=== PATIENT | female | born 1980 | race Caucasian/White ===

== ENCOUNTER 2017-02-03 00:50 | Emergency (ER) | payer BC, OTHER ==
[~2017-02-03] VITALS: Ht 160 cm; Wt 80.7 kg
--- NOTE | 2017-02-03 01:29 | NUR ---
Patient discharged to home in stable conditon. Written and verbal after care instructions given. Patient verbalizes understanding of instructions. PATIENT LEFT WITH STABLE GAIT.
[2017-02-03 01:30] VITALS: BP 135/89
== END 2017-02-03 01:30 | disposition home or self-care (01) ==
LOC: ER 00:55
DX: H66.92 Otitis media, unspecified, left ear (principal)
CPT/HCPCS: A4663

== ENCOUNTER 2017-02-18 11:17 | Emergency (ER) | payer BC, OTHER ==
[~2017-02-18] VITALS: Ht 160 cm; Wt 79.4 kg
--- NOTE | 2017-02-18 11:38 | NUR ---
Patient discharged to home in stable conditon. Written and verbal after care instructions given to patient. Patient verbalizes understanding of instructions.
== END 2017-02-18 11:39 | disposition home or self-care (01) ==
LOC: ER 11:17
DX: J02.9 Acute pharyngitis, unspecified (principal)
CPT/HCPCS: 36415; 86403; 87070; A4663; Q0144

== ENCOUNTER 2017-07-22 07:05 | Emergency (ER) | payer BC, OTHER ==
[~2017-07-22] VITALS: Ht 160 cm; Wt 80.7 kg
== END 2017-07-22 07:59 | disposition home or self-care (01) ==
LOC: ER 07:05
DX: J20.8 Acute bronchitis due to other specified organisms (principal); B96.89 Other specified bacterial agents as the cause of diseases classified elsewhere; J45.909 Unspecified asthma, uncomplicated; Z90.49 Acquired absence of other specified parts of digestive tract
CPT/HCPCS: A4663

== ENCOUNTER 2017-10-25 10:59 | Day surgery (SDC) | payer BC, OTHER ==
[2017-10-25] MEDS ORDERED: LIDOCAINE HCL 1% 20 ML VIAL MC ONE (11:00)
[2017-10-25] MEDS ORDERED: PROPOFOL 200 MG/20 ML BOTTLE IV ONE (11:00)
[2017-10-25 11:27] LABS: BASOPHILS # (AUTO) 0.1 K/uL (0.0-8.0); BASOPHILS % (AUTO) 0.9 % (0.0-2.0); EOSINOPHILS # (AUTO) 0.3 K/uL (0.0-0.7); EOSINOPHILS % (AUTO) 3.7 % (0.0-7.0); HEMATOCRIT 39.3 % (31.2-41.9); HEMOGLOBIN 13.3 g/dL (10.9-14.3); LYMPHOCYTES # (AUTO) 2.8 K/uL (20.0-40.0); LYMPHOCYTES % (AUTO) 36.9 % (20.5-51.5); MEAN CORPUSCULAR HEMOGLOBIN 29.3 uug (24.7-32.8); MEAN CORPUSCULAR HGB CONC 34 g/dL (32.3-35.6); MEAN CORPUSCULAR VOLUME 86.3 fL (75.5-95.3); MONOCYTES # (AUTO) 0.4 K/uL (2.0-10.0); MONOCYTES % (AUTO) 4.8 % (0.0-11.0); NEUTROPHILS % (AUTO) 53.7 % (38.5-71.5); PLATELET COUNT (AUTO) 264 K/uL (179-408); RED BLOOD CELL COUNT(AUTO) 4.55 MIL/uL (3.63-4.92); WHITE BLOOD COUNT (AUTO) 7.5 K/uL (3.8-11.8)
[2017-10-25 11:31] LABS: *BILIRUBIN,URIN NEGATIVE (NEGATIVE); *BLOOD, URINE 2+ (NEGATIVE); *CLARITY,URINE SLIGHTLY CLOUDY (CLEAR); *COLOR,URINE YELLOW (YELLOW); *KETONES,URINE NEGATIVE (NEGATIVE); *PROTEIN,URINE NEGATIVE (NEGATIVE); *UROBILINOGEN,URINE 0.2 E.U./dl (NORMAL); LEUKOCYTE ESTERASE ,URINE 1+ (NEGATIVE); NITRITE, URINE NEGATIVE (NEGATIVE); PH,URINE 5.5 (5.0-8.0); UGLUCOSE NEGATIVE (NEGATIVE)
[2017-10-25 11:41] LABS: BILIRUBIN,TOTAL 0.4 mg/dL (0.2-1.0); CREATININE 0.7 mg/dL (0.6-1.3); POTASSIUM 3.8 mmol/L (3.5-5.1); TOTAL PROTEIN, SERUM 7.6 g/dL (6.4-8.2)
[2017-10-25 11:53] LABS: *URINE HCG, QUAL NEGATIVE (NEGATIVE)
[2017-10-25 11:56] LABS: BACTERIA,URINE MANY /HPF (NONE SEEN); SQUAMOUS EPITHELIAL CELL,UR MANY /HPF (NONE SEEN)
[2017-10-25] MEDS ORDERED: IOHEXOL 300MG/ML 50 ML VIAL ONE (13:16)
[2017-10-25] MEDS ORDERED: SUCCINYLCHOLINE CHLORIDE 200 MG/10 ML VIAL ONE (13:21)
[2017-10-25] MEDS ORDERED: INDOMETHACIN 50 MG SUPP.RECT RC ONE (13:33)
[2017-10-25] MEDS ORDERED: ALBUTEROL SULFATE 2.5 MG/3 ML NEBU ONE (15:14)
== END 2017-10-25 14:53 | disposition home or self-care (01) ==
LOC: DS 10:59
PROVIDERS: ATTEND Internal Medicine Gastroenterology
DX: R10.816 Epigastric abdominal tenderness (principal); E66.9 Obesity, unspecified; Z90.49 Acquired absence of other specified parts of digestive tract; Z79.899 Other long term (current) drug therapy; Z68.32 Body mass index [BMI] 32.0-32.9, adult
CPT/HCPCS: 36415; 43264; 74018; 76000; 84703; 85025; 85730; 94664; A4663; J0330; J3490; J7120; Q9967

== ENCOUNTER 2017-10-27 11:06 | Emergency (ER) | payer BC, OTHER ==
[~2017-10-27] VITALS: Ht 160 cm; Wt 79.4 kg
[2017-10-27] MEDS ORDERED: IBUPROFEN (11:32)
[2017-10-27] MEDS ORDERED: KETOROLAC TROMETHAMINE 60 MG INJ IM ONE ×2 (12:00)
[2017-10-27 12:13] LABS: BASOPHILS # (AUTO) 0.1 K/uL (0.0-8.0); BASOPHILS % (AUTO) 0.7 % (0.0-2.0); EOSINOPHILS # (AUTO) 0.3 K/uL (0.0-0.7); EOSINOPHILS % (AUTO) 3.1 % (0.0-7.0); HEMATOCRIT 36.7 % (31.2-41.9); HEMOGLOBIN 12.4 g/dL (10.9-14.3); LYMPHOCYTES # (AUTO) 2.4 K/uL (20.0-40.0); MEAN CORPUSCULAR HEMOGLOBIN 29.4 uug (24.7-32.8); MEAN CORPUSCULAR HGB CONC 34 g/dL (32.3-35.6); MEAN CORPUSCULAR VOLUME 87.2 fL (75.5-95.3); MONOCYTES # (AUTO) 0.8 K/uL (2.0-10.0); MONOCYTES % (AUTO) 7.1 % (0.0-11.0); NEUTROPHILS # (AUTO) 7.2 K/uL (1.8-8.9); NEUTROPHILS % (AUTO) 67.1 % (38.5-71.5); PLATELET COUNT (AUTO) 266 K/uL (179-408); WHITE BLOOD COUNT (AUTO) 10.8 K/uL (3.8-11.8)
[2017-10-27 12:17] LABS: CREATININE 0.6 mg/dL (0.6-1.3); POTASSIUM 3.6 mmol/L (3.5-5.1)
[2017-10-27 12:23] LABS: BILIRUBIN,TOTAL 0.5 mg/dL (0.2-1.0); TOTAL PROTEIN, SERUM 7.6 g/dL (6.4-8.2)
[2017-10-27 12:26] LABS: *BILIRUBIN,URIN NEGATIVE (NEGATIVE); *BLOOD, URINE 3+ (NEGATIVE); *CLARITY,URINE CLOUDY (CLEAR); *COLOR,URINE YELLOW (YELLOW); *KETONES,URINE 1+ (NEGATIVE); *PROTEIN,URINE 1+ (NEGATIVE); LEUKOCYTE ESTERASE ,URINE NEGATIVE (NEGATIVE); NITRITE, URINE NEGATIVE (NEGATIVE); PH,URINE 6.5 (5.0-8.0); UGLUCOSE NEGATIVE (NEGATIVE)
[2017-10-27 12:28] LABS: *URINE HCG, QUAL NEGATIVE (NEGATIVE)
[2017-10-27 12:30] LABS: BACTERIA,URINE FEW /HPF (NONE SEEN); RBC,URINE TNTC /HPF (0-3); SQUAMOUS EPITHELIAL CELL,UR FEW /HPF (NONE SEEN)
--- NOTE | 2017-10-27 15:04 | NUR ---
mse completed, pt d/c'd home, aci/rx x2 given. pt got dressed and ambultaed w/o diff/took all belongings.
[2017-10-27 15:05] VITALS: BP 133/74
== END 2017-10-27 15:05 | disposition home or self-care (01) ==
LOC: ER 11:10
DX: N39.0 Urinary tract infection, site not specified (principal); M79.1 Myalgia; K21.9 Gastro-esophageal reflux disease without esophagitis; Z79.1 Long term (current) use of non-steroidal anti-inflammatories (NSAID); Z90.49 Acquired absence of other specified parts of digestive tract
CPT/HCPCS: 36415; 80053; 81001; 84703; 85025; 96372; 99284; A4663; J1885

== ENCOUNTER 2018-02-02 13:10 | Emergency (ER) | payer BC, OTHER ==
[~2018-02-02] VITALS: Ht 160 cm; Wt 81.6 kg
[~2018-02-02 13:10] MED LIST: IBUPROFEN
[2018-02-02] MEDS ORDERED: ONDANSETRON ODT 4 MG TAB.RAPDIS SL ONE (13:30)
[2018-02-02] MEDS ORDERED: ONDANSETRON ODT 4 MG TAB.RAPDIS ONE (13:35)
[2018-02-02 13:55] LABS: BASOPHILS % (AUTO) 0.3 % (0.0-2.0); EOSINOPHILS # (AUTO) 0.1 K/uL (0.0-0.7); EOSINOPHILS % (AUTO) 0.6 % (0.0-7.0); HEMATOCRIT 41.1 % (31.2-41.9); HEMOGLOBIN 13.6 g/dL (10.9-14.3); LYMPHOCYTES # (AUTO) 1.6 K/uL (20.0-40.0); MEAN CORPUSCULAR HEMOGLOBIN 28.9 uug (24.7-32.8); MEAN CORPUSCULAR HGB CONC 33 g/dL (32.3-35.6); MEAN CORPUSCULAR VOLUME 87.1 fL (75.5-95.3); MONOCYTES % (AUTO) 6.8 % (0.0-11.0); NEUTROPHILS # (AUTO) 11.8 K/uL (1.8-8.9); NEUTROPHILS % (AUTO) 81.3 % (38.5-71.5); PLATELET COUNT (AUTO) 300 K/uL (179-408); RED BLOOD CELL COUNT(AUTO) 4.72 MIL/uL (3.63-4.92); WHITE BLOOD COUNT (AUTO) 14.5 K/uL (3.8-11.8)
[2018-02-02 14:01] LABS: CREATININE 0.6 mg/dL (0.6-1.3); POTASSIUM 3.6 mmol/L (3.5-5.1)
[2018-02-02 14:07] LABS: BILIRUBIN,DIRECT 0.1 mg/dL (0.0-0.2); BILIRUBIN,TOTAL 0.4 mg/dL (0.2-1.0)
--- NOTE | 2018-02-02 14:36 | NUR ---
Patient discharged to home in stable conditon. Written and verbal after care instructions given. Patient verbalizes understanding of instructions.
== END 2018-02-02 14:37 | disposition home or self-care (01) ==
LOC: ER 13:13
DX: R42 Dizziness and giddiness (principal); K21.9 Gastro-esophageal reflux disease without esophagitis; Z90.49 Acquired absence of other specified parts of digestive tract
CPT/HCPCS: 36415; 80048; 80076; 83690; 84484; 85025; 93005; 99285; A4663; Q0162; 70030-TC

== ENCOUNTER 2018-07-27 17:16 | Emergency (ER) | payer BC, OTHER ==
[~2018-07-27] VITALS: Ht 160 cm; Wt 81.6 kg
--- NOTE | 2018-07-27 17:30 | NUR ---
Patient discharged to home in stable conditon. Written and verbal after care instructions given. Patient verbalizes understanding of instructions.
== END 2018-07-27 17:33 | disposition home or self-care (01) ==
LOC: ER 17:18
DX: H60.91 Unspecified otitis externa, right ear (principal); K21.9 Gastro-esophageal reflux disease without esophagitis; Z90.49 Acquired absence of other specified parts of digestive tract
CPT/HCPCS: A4663

== ENCOUNTER 2018-11-30 14:29 | Emergency (ER) | payer BC, OTHER ==
[~2018-11-30] VITALS: Ht 160 cm; Wt 81.6 kg
[2018-11-30] MEDS ORDERED: KETOROLAC TROMETHAMINE 30 MG INJ IM ONE (14:45)
[2018-11-30] MEDS ORDERED: KETOROLAC TROMETHAMINE 30 MG INJ ONE (15:14)
[2018-11-30 15:21] VITALS: BP 114/68
--- NOTE | 2018-11-30 15:21 | NUR ---
PT WAS EVALUATED BY DR SANTILLAN. PT WAS D/C'd TO HOME. D/C INSTRUCTIONS GIVEN TO THE PT.
== END 2018-11-30 15:23 | disposition home or self-care (01) ==
LOC: ER 14:31
DX: M54.41 Lumbago with sciatica, right side (principal); K21.9 Gastro-esophageal reflux disease without esophagitis; Z90.49 Acquired absence of other specified parts of digestive tract; X50.1XXA Overexertion from prolonged static or awkward postures, initial encounter; Y93.89 Activity, other specified; Y92.89 Other specified places as the place of occurrence of the external cause; Y99.8 Other external cause status
CPT/HCPCS: 96372; 99283; J1885; A4663

== ENCOUNTER 2020-06-26 09:51 | Outpatient (CLI) | payer BC, OTHER ==
[2020-06-26 10:16] LABS: *BILIRUBIN,URIN NEGATIVE (NEGATIVE); *BLOOD, URINE 2+ (NEGATIVE); *CLARITY,URINE SLIGHTLY CLOUDY (CLEAR); *COLOR,URINE YELLOW (YELLOW); *KETONES,URINE NEGATIVE (NEGATIVE); *UROBILINOGEN,URINE 0.2 E.U./dl (NORMAL); LEUKOCYTE ESTERASE ,URINE NEGATIVE (NEGATIVE); NITRITE, URINE NEGATIVE (NEGATIVE); PH,URINE 5.5 (5.0-8.0); UGLUCOSE NEGATIVE (NEGATIVE)
[2020-06-26 14:08] LABS: RBC,URINE NONE SEEN /HPF (0-3); WBC,URINE 0-3 /HPF (0-3)
[2020-06-26 14:09] LABS: BACTERIA,URINE FEW /HPF (NONE SEEN); SQUAMOUS EPITHELIAL CELL,UR FEW /HPF (NONE SEEN)
== END 2020-06-26 23:59 | disposition home or self-care (01) ==
LOC: LAB 09:51
PROVIDERS: ATTEND Family Medicine
DX: R31.9 Hematuria, unspecified (principal)

== ENCOUNTER 2020-06-30 14:14 | Outpatient (CLI) | payer BC, OTHER ==
[2020-06-30 14:46] LABS: *BILIRUBIN,URIN NEGATIVE (NEGATIVE); *COLOR,URINE YELLOW (YELLOW); *KETONES,URINE TRACE (NEGATIVE); *UROBILINOGEN,URINE 0.2 E.U./dl (NORMAL); LEUKOCYTE ESTERASE ,URINE NEGATIVE (NEGATIVE); NITRITE, URINE NEGATIVE (NEGATIVE); PH,URINE 5.5 (5.0-8.0); UGLUCOSE NEGATIVE (NEGATIVE)
[2020-06-30 14:50] LABS: *BLOOD, URINE TRACE (NEGATIVE)
[2020-06-30 15:14] LABS: *CLARITY,URINE SLIGHTLY HAZY (CLEAR); BACTERIA,URINE FEW /HPF (NONE SEEN); SQUAMOUS EPITHELIAL CELL,UR MODERATE /HPF (NONE SEEN); WBC,URINE 0-3 /HPF (0-3)
== END 2020-06-30 23:59 | disposition home or self-care (01) ==
LOC: LAB 14:14
PROVIDERS: ATTEND Family Medicine
DX: R31.9 Hematuria, unspecified (principal)
CPT/HCPCS: 87086

== ENCOUNTER 2020-09-03 11:33 | Outpatient (CLI) | payer BC, OTHER ==
[2020-09-03 11:56] LABS: *BILIRUBIN,URIN NEGATIVE (NEGATIVE); *BLOOD, URINE 1+ (NEGATIVE); *COLOR,URINE YELLOW (YELLOW); *KETONES,URINE NEGATIVE (NEGATIVE); *UROBILINOGEN,URINE 0.2 E.U./dl (NORMAL); LEUKOCYTE ESTERASE ,URINE NEGATIVE (NEGATIVE); NITRITE, URINE NEGATIVE (NEGATIVE); PH,URINE 5.5 (5.0-8.0); UGLUCOSE NEGATIVE (NEGATIVE)
[2020-09-03 15:13] LABS: *CLARITY,URINE SLIGHTLY HAZY (CLEAR); BACTERIA,URINE FEW /HPF (NONE SEEN); SQUAMOUS EPITHELIAL CELL,UR MODERATE /HPF (NONE SEEN)
== END 2020-09-03 23:59 | disposition home or self-care (01) ==
LOC: LAB 11:33
PROVIDERS: ATTEND Family Medicine
DX: R31.9 Hematuria, unspecified (principal)

== ENCOUNTER 2020-12-19 15:06 | Emergency (ER) | payer BC, OTHER ==
[~2020-12-19] VITALS: Ht 160 cm; Wt 81.6 kg
[2020-12-19 15:48] LABS: *URINE HCG, QUAL NEGATIVE (NEGATIVE)
[2020-12-19] MEDS ORDERED: ACETAMINOPHEN ES 500 MG TABLET PO ONE (16:15)
[2020-12-19] MEDS ORDERED: ASPIRIN 325 MG TABLET PO ONE (16:15)
[2020-12-19] MEDS ORDERED: ACETAMINOPHEN ES 500 MG TABLET ONE (16:26)
[2020-12-19] MEDS ORDERED: ASPIRIN 325 MG TABLET ONE (16:26)
[2020-12-19] MEDS ORDERED: METOCLOPRAMIDE HCL 10 MG/2 ML VIAL IM ONE (16:30)
[2020-12-19] MEDS ORDERED: diphenhydrAMINE 50 MG/1 ML VIAL IM ONE (16:30)
[2020-12-19 16:44] LABS: HEMATOCRIT 35.8 % (31.2-41.9); MEAN CORPUSCULAR HEMOGLOBIN 27.9 uug (24.7-32.8); MEAN CORPUSCULAR VOLUME 85.5 fL (75.5-95.3); PLATELET COUNT (AUTO) 387 K/uL (179-408)
[2020-12-19 16:52] LABS: CREATININE 0.7 mg/dL (0.6-1.3); POTASSIUM 4.2 mmol/L (3.5-5.1)
[2020-12-19] MEDS ORDERED: diphenhydrAMINE 50 MG/1 ML VIAL ONE (16:53)
[2020-12-19] MEDS ORDERED: METOCLOPRAMIDE HCL 10 MG/2 ML VIAL ONE (16:53)
[2020-12-19 17:04] LABS: BILIRUBIN,DIRECT 0.1 mg/dL (0.0-0.2); BILIRUBIN,TOTAL 0.2 mg/dL (0.2-1.0); TOTAL PROTEIN, SERUM 6.7 g/dL (6.4-8.2)
[2020-12-19] MEDS ORDERED: SWABABLE VALVE TRANSFER SET EA MC ONE (20:34)
[2020-12-19] MEDS ORDERED: IOHEXOL 350 100 ML INFUS..BTL ONE (20:34)
[2020-12-19] MEDS ORDERED: IV NORMAL SALINE 250 ML IV ONE (20:34)
[2020-12-19] MEDS ORDERED: HYDR-3980 PO (22:40)
[2020-12-19 22:54] VITALS: BP 133/79
--- NOTE | 2020-12-19 22:54 | NUR ---
Patient discharged to home in stable condition. Written and verbal after care instructions given. Patient verbalizes understanding of instructions. Stressed follow up or return to ER for worsening s/s. Patient A&O x4, ambulating with steady gait. NAD noted. IV removed. Catheter intact and site benign. Pressure and 4x4 gauze applied to site. No bleeding noted.
== END 2020-12-19 22:54 | disposition home or self-care (01) ==
LOC: ER 15:06
DX: R07.9 Chest pain, unspecified (principal); R51.9 Headache, unspecified; D72.829 Elevated white blood cell count, unspecified; J45.909 Unspecified asthma, uncomplicated; K76.0 Fatty (change of) liver, not elsewhere classified; R79.1 Abnormal coagulation profile; Z20.822 Contact with and (suspected) exposure to COVID-19; K21.9 Gastro-esophageal reflux disease without esophagitis; Z90.49 Acquired absence of other specified parts of digestive tract
CPT/HCPCS: 36415; 71045; 71275; 80048; 80076; 83880; 84484 ×2; 84703; 85025; 85379; 87426; 93005 ×2; 96372; 99285; J1200; J2765; Q9967; 70030-TC; A4663; A9150; J7050